=== PATIENT | male | born 2000 | race African-American/Black ===

== ENCOUNTER 2018-02-02 17:25 | Emergency (ER) | payer OTHER ==
[2018-02-02 18:12] VITALS: BP 122/73
[2018-02-02] MEDS ORDERED: Ibuprofen ADULT LIQ* 600 MG/30 ML UDC PO ONE (19:02)
[2018-02-02] MEDS ORDERED: Ondansetron ODT TAB* 4 MG PO ONE (19:02)
--- NOTE | 2018-02-02 19:07 | UC ---
General HPI - HPI Summary HPI Summary: 01/18/18, FELL AND HIT BACK OF HEAD. 01/20/18 SEEN AT THIS FACILITY, HAD CT'S BRAIN AND NECK. DIAGNOSED WITH A CONCUSSION. TX KIERAN AND GIVEN F/U WITH DR HOLT. PT DID NOT F/U, HE WENT HOME AND RESTED INSTEAD. HE WAS FEELING IMPROVED. TODAY, PT RETURNED TO [facility]CLASS AND GOT RECURRENT NAUSEA, HEADACHE AND NOTES DIFFICULTY WITH FOCUS. PT STATES HE WENT TO THE HEALTH DEPT AT [facility] AND THEY TOLD HIM TO COME HERE. DENIES ANY RECURRENT INJURY. - History of Current Complaint Chief Complaint: UCGeneralIllness Stated Complaint: GRACIA/NAUSEA Time Seen by Provider: 02/02/18 18:46 Hx Obtained From: Patient Pain Intensity: 8 Associated Signs & Symptoms: Negative: Fever, Weakness - Allergy/Home Medications Allergies/Adverse Reactions: Allergies Allergy/AdvReac Type Severity Reaction Status Date / Time No Known Allergies Allergy Verified 02/02/18 18:12 PMH/Surg Hx/FS Hx/Imm Hx Previously Healthy: Yes - Surgical History Surgical History: None - Family History Known Family History: Positive: Non-Contributory - Social History Occupation: Student Alcohol Use: None Substance Use Type: None Smoking Status (MU): Never Smoked Tobacco - Immunization History Vaccination Up to Date: Yes Review of Systems All Other Systems Reviewed And Are Negative: Yes Constitutional: Positive: Negative Skin: Positive: Negative Eyes: Positive: Photophobia ENT: Positive: Negative Respiratory: Positive: Negative Cardiovascular: Positive: Negative Gastrointestinal: Positive: Nausea Genitourinary: Positive: Negative Motor: Positive: Negative Neurovascular: Positive: Negative Musculoskeletal: Positive: Negative Neurological: Positive: Headache Psychological: Positive: Negative Is Patient Immunocompromised?: No Physical Exam Triage Information Reviewed: Yes Appearance: Well-Appearing Vital Signs: Initial Vital Signs Temp 97.7 F 02/02/18 18:06 Pulse 65 02/02/18 18:06 Resp 14 02/02/18 18:06 BP 122/73 02/02/18 18:06 Pulse Ox 99 02/02/18 18:06 Vital Signs Reviewed: Yes Eyes: Positive: Conjunctiva Clear, Other: - PERRL, EOMI ENT: Positive: Pharynx normal, TMs normal. Negative: Nasal congestion, Nasal drainage Neck: Positive: Supple, Nontender, No Lymphadenopathy Respiratory: Positive: Lungs clear, Normal breath sounds Cardiovascular: Positive: RRR, No Murmur Abdomen Description: Positive: Nontender, No Organomegaly, Soft Bowel Sounds: Positive: Present Musculoskeletal: Positive: ROM Intact Neurological: Positive: Other: - A&O x3. CN 2-12 grossly intact. 5/5 strenght, 2 + reflexes and sensation intact x4. Normal steady gait. Psychological: Positive: Age Appropriate Behavior Skin Exam: Normal Course/Dx - Course Course Of Treatment: pt with hx of concussion. no concern for intracranial bleed or mass. he will need to f/u for concussion management. pt given contact infor for Dr Holt again. He was also given [facility] [place] for assistance as well. need for f/u stressed. - Diagnoses Provider Diagnosis: Concussion Discharge - Sign-Out/Discharge Documenting (check all that apply): Patient Departure All imaging exams completed and their final reports reviewed: No Studies - Discharge Plan Condition: Stable Disposition: HOME Prescriptions: Ondansetron ODT TAB* [Zofran 4 MG Odt TAB*] 4 mg PO Q6H PRN #10 tab.odt PRN Reason: Nausea Patient Education Materials: Concussion (ED) Forms: *Physical Education Release, *School Release Referrals: Raoul Holt MD [Medical Doctor] - As Soon As Possible [facility] [place] [facility] [place]Outside] - 1 Day Additional Instructions: CALL THE PHYSICIAN REFERRAL IN AM. THEY CAN HELP YOU ARRANGE THE FOLLOW UP WITH DR HOLT. - Billing Disposition and Condition Condition: STABLE Disposition: Home - Attestation Statements Provider Attestation: I was available for consult. This patient was seen by the [facility]. The patient was not presented to, seen by, or examined by me. -Yanna
== END 2018-02-02 19:22 | disposition home or self-care (01) ==
LOC: UCCORT 17:25
DX: Z51.89 Encounter for other specified aftercare (principal); S06.0X9D Concussion with loss of consciousness of unspecified duration, subsequent encounter; W19.XXXD Unspecified fall, subsequent encounter
CPT/HCPCS: 99212; A9270-GY; G0463

== ENCOUNTER 2018-03-30 13:27 | Emergency (ER) | payer OTHER ==
--- NOTE | 2018-03-30 13:49 | UC ---
Complaint Male HPI - HPI Summary HPI Summary: dysuria x 1 week no discharge, no fever, no chills, no abdominal pain hx of Chlamydia , was tested by his pcp last weeks for STDs, was positive for Chlamydia but was not treated, requesting antibiotics - History of Current Complaint Stated Complaint: PERSONAL Time Seen by Provider: 03/30/18 13:38 Hx Obtained From: Patient Onset/Duration: Gradual Onset, Lasting Weeks - 1 Timing: Constant Severity Initially: Moderate Severity Currently: Moderate Location: Penis Character: Burning Aggravating Factor(s): Voiding Alleviating Factor(s): Nothing Associated Signs And Symptoms: Negative: Diaphoresis, Back Pain, Fever, Hematuria, Dysuria, Constipation, Blood in Stool, Rectal Pain, Appetite, Nausea , Vomiting(# Of Episodes =), Penile Swelling, Penile Discharge - Allergies/Home Medications Allergies/Adverse Reactions: Allergies Allergy/AdvReac Type Severity Reaction Status Date / Time No Known Allergies Allergy Verified 03/30/18 13:57 PMH/Surg Hx/FS Hx/Imm Hx - Additional Past Medical History Additional PMH: concussion 01/2018 with fall as reusult of head injury-pt was seen at [facility] for evaluation - Surgical History Surgical History: None - Family History Known Family History: Positive: Non-Contributory Negative: Diabetes - Social History Alcohol Use: None Substance Use Type: None Smoking Status (MU): Never Smoked Tobacco - Immunization History Vaccination Up to Date: Yes Review of Systems All Other Systems Reviewed And Are Negative: Yes Constitutional: Positive: Negative Skin: Positive: Negative Eyes: Positive: Negative ENT: Positive: Negative Respiratory: Positive: Negative Cardiovascular: Positive: Negative Gastrointestinal: Positive: Negative Genitourinary: Positive: Dysuria Is Patient Immunocompromised?: No Physical Exam Triage Information Reviewed: Yes Appearance: Well-Appearing, No Pain Distress, Well-Nourished Vital Signs Reviewed: Yes Eye Exam: Normal Eyes: Positive: Conjunctiva Clear ENT: Positive: Normal ENT inspection, Hearing grossly normal, Pharynx normal Neck: Positive: Supple, Nontender, No Lymphadenopathy Respiratory: Positive: Chest non-tender, Lungs clear, Normal breath sounds Cardiovascular: Positive: RRR, No Murmur, Pulses Normal Abdominal Exam: Normal Abdomen Description: Positive: Nontender, Soft. Negative: CVA Tenderness (R), CVA Tenderness (L), Distended, Guarding Bowel Sounds: Negative: Present Skin Exam: Normal Complaint Male Course/Dx - Differential Dx/Diagnosis Provider Diagnosis: Dysuria Discharge - Sign-Out/Discharge Documenting (check all that apply): Patient Departure All imaging exams completed and their final reports reviewed: No Studies - Discharge Plan Condition: Stable Disposition: HOME Prescriptions: Azithromycin 4 mg PO ONCE #4 tablet Patient Education Materials: Sexually Transmitted Diseases (ED) Referrals: No Primary Care Phys,NOPCP [Primary Care Provider] - 7 Days - Billing Disposition and Condition Condition: STABLE Disposition: Home
[2018-03-30 13:57] VITALS: BP 130/71
== END 2018-03-30 14:29 | disposition home or self-care (01) ==
LOC: UCCORT 13:27
DX: R30.0 Dysuria (principal); A56.8 Sexually transmitted chlamydial infection of other sites
CPT/HCPCS: 87491; 87591; 99212; G0463